=== PATIENT | male | born 1995 | race African-American/Black ===

== ENCOUNTER 2017-09-01 12:39 | Emergency (ER) | payer OTHER ==
--- NOTE | 2017-09-01 13:35 | RAD ---
RIGHT HAND 3 VIEWS: HISTORY: Injury and pain. COMPARISON: None. FINDINGS: There is a minimally displaced fracture involving the proximal aspect of the 1st metacarpal. There i s intraarticular extension. Remaining osseous structures of the right hand are unremarkable. IMPRESSION: Fracture involving the proximal aspect of the 1st metacarpal. There is intraarticular extension and associated soft tissue swelling. POS: [facility]
== END 2017-09-01 13:40 ==
LOC: MADERS 12:39
DX: S62.231A Other displaced fracture of base of first metacarpal bone, right hand, initial encounter for closed fracture (principal); F17.210 Nicotine dependence, cigarettes, uncomplicated; X50.1XXA Overexertion from prolonged static or awkward postures, initial encounter
CPT/HCPCS: 29125